=== PATIENT | female | born 1980 | race Caucasian/White ===

== ENCOUNTER 2021-05-17 13:05 | Observation (INO) | payer BC ==
[~2021-05-17] VITALS: Ht 167.6 cm; Wt 67.3 kg
[2021-05-17] MEDS ORDERED: IV NORMAL SALINE 1000ML BAG 1,000 ML IV ONE (14:00)
--- NOTE | 2021-05-17 14:07 | PHYS DOC ---
Past Medical History Additional Past Medical Histor: KIDNEY STONES Past Surgical History: Hysterectomy General Adult EDM: Chief Complaint: DIZZY/LIGHT HEADED HPI: HPI: Patient is a 40 year old female with no significant medical history presenting to the ED today to be evaluated for dizziness, hypotension, and bradycardia. Patient states symptoms have been going on intermittently since February this year. She states she saw a city planning teacher last week at [facility] and her blood pressure as well as heart rate were okay. She states they ordered her a Holter monitor but it has not arrived. She states today she had a dizzy spell, she could not hear from bilateral ears, her visual became tunneled she had chest tightness and shortness of breath. She states she did not pass out. She states that her took her vitals. Her blood pressure sitting was 104/56 with a heart rate of 49, blood pressure standing was 83/49 with a heart rate in the 60s. She states she called the city planning teacher and they requested her to come to the ED to be evaluated. Review of Systems: Review of Systems: Constitutional: Denies fever or chills. [] Eyes: Reports tunnel vision, denies change in visual acuity. [] HENT: Reports hearing loss, denies nasal congestion or sore throat. [] Respiratory: Reports shortness of breath. Denies cough Cardiovascular: Reports bradycardia, chest tightness, denies chest pain GI: Denies abdominal pain, nausea, vomiting, bloody stools or diarrhea. [] : Denies dysuria. [] Musculoskeletal: Denies back pain or joint pain. [] Integument: Denies rash. [] Neurologic: Reports dizziness. Denies headache, focal weakness or sensory changes. [] Psychiatric: Denies depression or anxiety. [] Heart Score: C/O Chest Pain: N/A Risk Factors: Risk Factors: DM, Current or recent (<one month) smoker, HTN, HLP, family history of CAD, obesity. Risk Scores: Score 0 - 3: 2.5% MACE over next 6 weeks - Discharge Home Score 4 - 6: 20.3% MACE over next 6 weeks - Admit for Clinical Observation Score 7 - 10: 72.7% MACE over next 6 weeks - Early Invasive Strategies Current Medications: Current Medications Medications (Trade) Dose Ordered Sig/Elle Start Time Stop Time Status Last Admin Dose Admin Sodium Chloride 1,000 ml @ 1,000 mls/hr 1X ONCE 05/17/21 14:00 05/17/21 14:59 Allergies: Allergies: Allergies Coded Allergies Type Severity Reaction Last Updated Verified No Known Drug Allergies 05/17/21 No Physical Exam: PE: Constitutional: Well developed, well nourished, no acute distress, non-toxic appearance. [] HENT: Normocephalic, atraumatic, bilateral external ears normal, oropharynx moist, no oral exudates, nose normal. [] Eyes: PERRLA, EOMI, conjunctiva normal, no discharge. [] Neck: Normal range of motion, no tenderness, supple, no stridor. [] Cardiovascular: Bradycardic heart rate in the 30s Lungs & Thorax: Bilateral breath sounds clear to auscultation [] Abdomen: Bowel sounds normal, soft, no tenderness, no masses, no pulsatile masses. [] Skin: Warm, dry, no erythema, no rash. [] Back: No tenderness, no CVA tenderness. [] Extremities: No tenderness, no cyanosis, no clubbing, ROM intact, no edema. [] Neurologic: Alert and oriented X 3, normal motor function, normal sensory function, no focal deficits noted. Cranial nerves II through XII intact Psychologic: Affect normal, judgement normal, mood normal. [] Current Patient Data: Vital Signs: Vital Signs Date Time Temp Pulse Resp B/P (MAP) Pulse Ox O2 Delivery O2 Flow Rate FiO2 05/17/21 13:40 97.4 37 18 111/56 (74) 99 Room Air 97.4 EKG: EK interpreted by Dr. Mahoney sinus bradycardia heart rate 39 no STEMI Radiology/Procedures: Radiology/Procedures: []PROCEDURE: PORTABLE CHEST 1V XR CHEST 1V History: Dizziness. Comparison: None. Technique: AP radiograph of the chest. Findings: The lungs are adequately and symmetrically inflated. No airspace consolidation, pleural effusion or pneumothorax. The cardiomediastinal silhouette and pulmonary vasculature are within normal limits. No acute osseous abnormality. Soft tissues are unremarkable. Impression: 1. No acute cardiopulmonary process. Electronically signed by: David Calderon MD (05/17/2021 2:34 PM) [id number] DICTATED and SIGNED BY: DAVID CALDERON MD DATE: 05/17/21 1434 Course & Med Decision Making: Course & Med Decision Making Pertinent Labs and Imaging studies reviewed. (See chart for details) This is a 40-year-old female patient presenting to the ED today with multiple complaints. Patient is complaining of bradycardia, hypotension, dizziness, symptoms have been going on intermittently since February but got worse today. Arrives in the ED with a blood pressure of 154/81, heart rate of 35, O2 sats 100% on room air. Dr. Mahoney was notified of patient's bradycardia and symptoms. He requested we do not start atropine for now. Cardiology was called. EKG shows sinus bradycardia heart rate in the 30s. Labs are negative for any acute findings Maday REEL BLADE BENDER FURNACE TENDER for cardiology came and saw the patient. She requested we admit patient under observation status but do not give any atropine Spoke with Dr. Perez who accepted patient for admission Dragon Disclaimer: Mohit Disclaimer: This electronic medical record was generated, in whole or in part, using a voice recognition dictation system. Departure Departure Impression: Primary Impression: Bradycardia Additional Impressions: Dizziness Shortness of breath Hypotension Qualified Codes: I95.9 - Hypotension, unspecified Disposition: 09 ADMITTED INPATIENT Condition: STABLE Referrals: NO PCP (PCP) DOROTHY CHEATHAM APRN May 17, 2021 14:07
[2021-05-17 14:14] LABS: BASO # 0.1 x10^3/uL (0.0-0.2); BASO % 1 % (0-3); EOS # 0.2 x10^3/uL (0.0-0.7); EOS % 2 % (0-3); HEMATOCRIT 35.7 % (36.0-47.0); HEMOGLOBIN 12.4 g/dL (12.0-15.5); LYMPH # 3.3 x10^3/uL (1.0-4.8); LYMPH % 39 % (24-48); MEAN CORPUSCULAR HEMOGLOBIN 31 pg (25-35); MEAN CORPUSCULAR HGB CONC 35 g/dL (31-37); MEAN CORPUSCULAR VOLUME 89 fL (79-100); MONO # 0.4 x10^3/uL (0.0-1.1); MONO % 5 % (0-9); NEUT # 4.4 x10^3/uL (1.8-7.7); NEUT % 53 % (31-73); PLATELET COUNT 319 x10^3/uL (140-400); RED BLOOD COUNT 4.01 x10^6/uL (3.50-5.40); RED CELL DISTRIBUTION WIDTH 13.5 % (11.5-14.5); WHITE BLOOD COUNT 8.4 x10^3/uL (4.0-11.0)
[2021-05-17 14:26] LABS: CALCIUM 9.5 mg/dL (8.5-10.1); CREATININE 0.7 mg/dL (0.6-1.0); GFR 92.2; POTASSIUM 3.7 mmol/L (3.5-5.1)
[2021-05-17 14:31] LABS: ALBUMIN 4.1 g/dL (3.4-5.0); ALBUMIN/GLOBULIN RATIO 1.4 (1.0-1.7); MAGNESIUM 2.3 mg/dL (1.8-2.4); TOTAL BILIRUBIN 0.7 mg/dL (0.2-1.0); TOTAL PROTEIN 7.1 g/dL (6.4-8.2)
--- NOTE | 2021-05-17 14:37 | RAD ---
XR CHEST 1V History: Dizziness. Comparison: None. Technique: AP radiograph of the chest. Findings: The lungs are adequately and symmetrically inflated. No airspace consolidation, pleural effusion or p neumothorax. The cardiomediastinal silhouette and pulmonary vasculature are within normal limits. No acute osseous abnormality. Soft tissues are unremarkable. Impression: 1. No acute cardiopulmonary process. Electronically signed by: David Goodman MD (05/17/2021 2:34 PM) [id number]
--- NOTE | 2021-05-17 15:26 | PDOC2 ---
RUPA ZAMORANO ADELSO 05/17/21 1526: CARDIAC CONSULT DATE OF CONSULT Date of Consult DATE: 05/17/21 TIME: 15:24 REASON FOR CONSULT Reason for Consult: bradycardia REFERRING PHYSICIAN Referring Physician: Tatum Herzog APRN SOURCE Source: Chart review, Patient HISTORY OF PRESENT ILLNESS HISTORY OF PRESENT ILLNESS This is a 40 yo female who presented secondary to dizziness, bradycardia, and hypotension. Patient reports intermittent dizziness upon standing since the end of February. Has became more frequent. Was referred to agent, Dr. Roach at [facility]. Was noted with bradycardia and heart monitor was arranged (patient has not yet received). This morning, had two episode of dizziness upon standing. Reports vision became black, felt slightly short of breath, and had loss of hearing briefly. was concerned so he called provider who recommend her to go to the ED for further evaluations and treatment. Noted with sinus bradycardia in ED. HR near 35-40 with lowest noted at 32. Blood pressure has remains adequate in ED. Denies dizziness presently. HR did increase to mid to upper 50's with activity. She denies any recent illness or fevers. No chest pain, diaphoresis, or nausea/vomiting. 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 PAST MEDICAL HISTORY Past Medical History HSV1, seasonal allergies Cardiovascular: No pertinent hx PAST SURGICAL HISTORY Past Surgical History: No pertinent history FAMILY HISTORY Family History: Other (noncontributory ) SOCIAL HISTORY Smoke: No ALCOHOL: occassional Drugs: None Lives: with Family CURRENT MEDICATIONS CURRENT MEDICATIONS Current Medications Medications (Trade) Dose Ordered Sig/Elle Route PRN Reason Start Time Stop Time Status Last Admin Dose Admin Sodium Chloride 1,000 ml @ 1,000 mls/hr 1X ONCE IV 05/17/21 14:00 05/17/21 14:59 DC 05/17/21 14:00 ALLERGIES ALLERGIES: Coded Allergies: No Known Drug Allergies (Unverified , 05/17/21) ROS Review of System 14 point ROS conducted with pertinent positives noted above in HPI PHYSICAL EXAM General: Alert, Oriented X3, Cooperative HEENT: Atraumatic Lungs: Clear to auscultation Heart: Other (SB- rate between 35-40) Abdomen: Soft, No tenderness Extremities: No edema, Normal pulses Skin: No significant lesion Neuro: Normal speech, Normal tone, Sensation intact Psych/Mental Status: Mental status NL, Mood NL MUSCULOSKELETAL: Osteoarthritic changes both hands VITALS/I&O VITALS/I&O: Vital Signs Date Time Temp Pulse Resp B/P (MAP) Pulse Ox O2 Delivery O2 Flow Rate FiO2 05/17/21 15:04 32 130/85 (100) 100 Nasal Cannula 2.0 05/17/21 13:40 97.4 18 97.4 LABS Lab: Laboratory Tests Test 05/17/21 13:37 White Blood Count 8.4 x10^3/uL (4.0-11.0) Red Blood Count 4.01 x10^6/uL (3.50-5.40) Hemoglobin 12.4 g/dL (12.0-15.5) Hematocrit 35.7 % (36.0-47.0) L Mean Corpuscular Volume 89 fL (79-100) Mean Corpuscular Hemoglobin 31 pg (25-35) Mean Corpuscular Hemoglobin Concent 35 g/dL (31-37) Red Cell Distribution Width 13.5 % (11.5-14.5) Platelet Count 319 x10^3/uL (140-400) Neutrophils (%) (Auto) 53 % (31-73) Lymphocytes (%) (Auto) 39 % (24-48) Monocytes (%) (Auto) 5 % (0-9) Eosinophils (%) (Auto) 2 % (0-3) Basophils (%) (Auto) 1 % (0-3) Neutrophils # (Auto) 4.4 x10^3/uL (1.8-7.7) Lymphocytes # (Auto) 3.3 x10^3/uL (1.0-4.8) Monocytes # (Auto) 0.4 x10^3/uL (0.0-1.1) Eosinophils # (Auto) 0.2 x10^3/uL (0.0-0.7) Basophils # (Auto) 0.1 x10^3/uL (0.0-0.2) Sodium Level 142 mmol/L (136-145) Potassium Level 3.7 mmol/L (3.5-5.1) Chloride Level 106 mmol/L (98-107) Carbon Dioxide Level 25 mmol/L (21-32) Anion Gap 11 (6-14) Blood Urea Nitrogen 9 mg/dL (7-20) Creatinine 0.7 mg/dL (0.6-1.0) Estimated GFR (Cockcroft-Gault) 92.2 BUN/Creatinine Ratio 13 (6-20) Glucose Level 114 mg/dL (70-99) H Calcium Level 9.5 mg/dL (8.5-10.1) Magnesium Level 2.3 mg/dL (1.8-2.4) Total Bilirubin 0.7 mg/dL (0.2-1.0) Aspartate Amino Transferase (AST) 10 U/L (15-37) L Alanine Aminotransferase (ALT) 17 U/L (14-59) Alkaline Phosphatase 42 U/L (46-116) L Troponin I High Sensitivity 5 ng/L (4-50) EA-Lil-M-Type Natriuretic Peptide 214 pg/mL (0-124) H Total Protein 7.1 g/dL (6.4-8.2) Albumin 4.1 g/dL (3.4-5.0) Albumin/Globulin Ratio 1.4 (1.0-1.7) Thyroid Stimulating Hormone (TSH) 1.885 uIU/mL (0.358-3.74) Laboratory Tests 05/17/21 13:37 Laboratory Tests 05/17/21 13:37 ASSESSMENT/PLAN ASSESSMENT/PLAN 1. Dizziness; generally occurs upon standing 2. Sinus bradycardia; HR presently 35-40. Lowest noted at 32 in ED. No pauses. Appropriate chronotropic response with activity. TSH WNL. IS physically active, but is not runner/athlete.Outpatient monitor has been arranged through [facility] agent, Dr. Roach (she has not received). 3. Hypotension; BP has remains stable in ED 4. Seasonal allergies Recommendations Admit to tele for rhythm monitoring overnight Orthostatic VS Avoid AV luis blocking agents Supportive care GIOVANA ROCKWELL MD 05/19/21 1750: CARDIAC CONSULT ASSESSMENT/PLAN ASSESSMENT/PLAN Late entry for 05/17/2021 Patient seen and examined. Agree with above nurse practitioner note. RUPA ZAMORANO APRN May 17, 2021 15:26 GIOVANA ROCKWELL MD May 19, 2021 17:50
--- NOTE | 2021-05-17 15:52 | EKG ---
[facility] [address] [place] [address] Test Date: 2021-05-17 Test Time: 13:25:29 Pat Name: DORIE MACKEY Department: Room: Gender: F Banking Paralegal: : 1980 Requested By: DOROTHY CHEATHAM Order Number: [id number] Reading MD: Ronak Raymundo Measurements Intervals [place] Rate: 39 P: 28 [place]: 128 QRS: 65 QRSD: 84 T: 54 QT: 498 QTc: 405 Interpretive Statements SINUS BRADYCARDIA ABNORMAL ECG RI6.02 No previous ECG available for comparison Electronically Signed On 05-21-2021 21:43:52 CDT by Ronak Raymundo
[2021-05-17 16:58] VITALS: BP 98/59
[2021-05-17] MEDS ORDERED: ATROPINE 0.5 MG/5 ML DISP.SYRINGE. IV PRN (17:30)
--- NOTE | 2021-05-17 17:37 | PDOC1 ---
History and Physical Date of Admission Date of Admission DATE: 05/17/21 TIME: 17:29 Identification/Chief Complaint Chief Complaint Weakness, bradycardia Source Source: Patient History of Present Illness History of Present Illness Patient is a 40-year-old female who presents to the ED with complaints of low blood pressure and symptomatic bradycardia. This is been a recurrent issue for her since February 2021. States she has been followed by pc maintenance technician at [facility] for this issue and scheduled for an outpatient Holter monitor, but she has only seen his pc maintenance technician once. Today she states she became dizzy while am bulating with some associated bilateral hearing loss, that she attributed to her seasonal allergies. When her became concerned about her vitals, he called her pc maintenance technician and her pc maintenance technician, he recommended coming to the ED for evaluation. Vitals: HR - 39, BP 98/59 Past Medical History Past Medical History Herpes, seasonal allergies Past Surgical History Past Surgical History Hysterectomy Family History Family History Colon cancer Social History Smoke: No ALCOHOL: social Drugs: None Current Problem List Problem List Problems Medical Problems: (1) Bradycardia Status: Acute Current Medications Current Medications Current Medications Sodium Chloride 1,000 ml @ 1,000 mls/hr 1X ONCE IV Last administered on 05/17/21at 14:00; Start 05/17/21 at 14:00; Stop 05/17/21 at 14:59; Status DC Allergies Allergies: Coded Allergies: No Known Drug Allergies (Unverified , 05/17/21) ROS Review of System GENERAL: Weakness. No history of weight change or fevers. SKIN: No bruising, hair changes or rashes. EYES: No blurred, double or loss of vision. NOSE AND THROAT: No history of nosebleeds, hoarseness or sore throat. HEART: Denies chest pain, denies palpitations. LUNGS: Denies cough, hemoptysis, wheezing or shortness of breath. GASTROINTESTINAL: Denies nausea, vomiting, abdominal pain. GENITOURINARY: Denies dysuria, frequency, urgency, hematuria. NEUROLOGIC: Denies history of numbness, tingling, tremor or weakness. PSYCHIATRIC: Denies anxiety, denies depression. ENDOCRINE: No history of heat or cold intolerance, polyuria or polydipsia. EXTREMITIES: Musculoskeletal weakness. Denies joint pain, pain on walking or s tiffness. Physical Exam Physical Exam General: Alert, Oriented X3, Cooperative, No acute distress. Frail-appearing. HEENT: PERRLA, EOMI Lungs: Clear to auscultation, Normal air movement Heart: Bradycardic. No murmurs Cardiovascular: S1, S2 Abdomen: Normal bowel sounds, Soft, No tenderness Extremities: No clubbing, No cyanosis Skin: No rashes, No significant lesion Neuro: Normal speech, Normal tone, Sensation intact Psych/Mental Status: Mental status NL, Mood NL Vitals Vitals Vital Signs Date Time Temp Pulse Resp B/P (MAP) Pulse Ox O2 Delivery O2 Flow Rate FiO2 05/17/21 16:58 97.4 47 19 98/59 (72) 100 Nasal Cannula 2.0 97.4 Labs Labs Laboratory Tests Test 05/17/21 13:37 White Blood Count 8.4 x10^3/uL (4.0-11.0) Red Blood Count 4.01 x10^6/uL (3.50-5.40) Hemoglobin 12.4 g/dL (12.0-15.5) Hematocrit 35.7 % (36.0-47.0) Mean Corpuscular Volume 89 fL (79-100) Mean Corpuscular Hemoglobin 31 pg (25-35) Mean Corpuscular Hemoglobin Concent 35 g/dL (31-37) Red Cell Distribution Width 13.5 % (11.5-14.5) Platelet Count 319 x10^3/uL (140-400) Neutrophils (%) (Auto) 53 % (31-73) Lymphocytes (%) (Auto) 39 % (24-48) Monocytes (%) (Auto) 5 % (0-9) Eosinophils (%) (Auto) 2 % (0-3) Basophils (%) (Auto) 1 % (0-3) Neutrophils # (Auto) 4.4 x10^3/uL (1.8-7.7) Lymphocytes # (Auto) 3.3 x10^3/uL (1.0-4.8) Monocytes # (Auto) 0.4 x10^3/uL (0.0-1.1) Eosinophils # (Auto) 0.2 x10^3/uL (0.0-0.7) Basophils # (Auto) 0.1 x10^3/uL (0.0-0.2) Sodium Level 142 mmol/L (136-145) Potassium Level 3.7 mmol/L (3.5-5.1) Chloride Level 106 mmol/L (98-107) Carbon Dioxide Level 25 mmol/L (21-32) Anion Gap 11 (6-14) Blood Urea Nitrogen 9 mg/dL (7-20) Creatinine 0.7 mg/dL (0.6-1.0) Estimated GFR (Cockcroft-Gault) 92.2 BUN/Creatinine Ratio 13 (6-20) Glucose Level 114 mg/dL (70-99) Calcium Level 9.5 mg/dL (8.5-10.1) Magnesium Level 2.3 mg/dL (1.8-2.4) Total Bilirubin 0.7 mg/dL (0.2-1.0) Aspartate Amino Transf (AST/SGOT) 10 U/L (15-37) Alanine Aminotransferase (ALT/SGPT) 17 U/L (14-59) Alkaline Phosphatase 42 U/L (46-116) Troponin I High Sensitivity 5 ng/L (4-50) ET-Jbe-Z-Type Natriuretic Peptide 214 pg/mL (0-124) Total Protein 7.1 g/dL (6.4-8.2) Albumin 4.1 g/dL (3.4-5.0) Albumin/Globulin Ratio 1.4 (1.0-1.7) Thyroid Stimulating Hormone (TSH) 1.885 uIU/mL (0.358-3.74) Laboratory Tests Test 05/17/21 13:37 White Blood Count 8.4 x10^3/uL (4.0-11.0) Red Blood Count 4.01 x10^6/uL (3.50-5.40) Hemoglobin 12.4 g/dL (12.0-15.5) Hematocrit 35.7 % (36.0-47.0) Mean Corpuscular Volume 89 fL (79-100) Mean Corpuscular Hemoglobin 31 pg (25-35) Mean Corpuscular Hemoglobin Concent 35 g/dL (31-37) Red Cell Distribution Width 13.5 % (11.5-14.5) Platelet Count 319 x10^3/uL (140-400) Neutrophils (%) (Auto) 53 % (31-73) Lymphocytes (%) (Auto) 39 % (24-48) Monocytes (%) (Auto) 5 % (0-9) Eosinophils (%) (Auto) 2 % (0-3) Basophils (%) (Auto) 1 % (0-3) Neutrophils # (Auto) 4.4 x10^3/uL (1.8-7.7) Lymphocytes # (Auto) 3.3 x10^3/uL (1.0-4.8) Monocytes # (Auto) 0.4 x10^3/uL (0.0-1.1) Eosinophils # (Auto) 0.2 x10^3/uL (0.0-0.7) Basophils # (Auto) 0.1 x10^3/uL (0.0-0.2) Sodium Level 142 mmol/L (136-145) Potassium Level 3.7 mmol/L (3.5-5.1) Chloride Level 106 mmol/L (98-107) Carbon Dioxide Level 25 mmol/L (21-32) Anion Gap 11 (6-14) Blood Urea Nitrogen 9 mg/dL (7-20) Creatinine 0.7 mg/dL (0.6-1.0) Estimated GFR (Cockcroft-Gault) 92.2 BUN/Creatinine Ratio 13 (6-20) Glucose Level 114 mg/dL (70-99) Calcium Level 9.5 mg/dL (8.5-10.1) Magnesium Level 2.3 mg/dL (1.8-2.4) Total Bilirubin 0.7 mg/dL (0.2-1.0) Aspartate Amino Transf (AST/SGOT) 10 U/L (15-37) Alanine Aminotransferase (ALT/SGPT) 17 U/L (14-59) Alkaline Phosphatase 42 U/L (46-116) Troponin I High Sensitivity 5 ng/L (4-50) UB-Gge-D-Type Natriuretic Peptide 214 pg/mL (0-124) Total Protein 7.1 g/dL (6.4-8.2) Albumin 4.1 g/dL (3.4-5.0) Albumin/Globulin Ratio 1.4 (1.0-1.7) Thyroid Stimulating Hormone (TSH) 1.885 uIU/mL (0.358-3.74) Images Images PATIENT: KEY,DORIEKAY POOLCOUNT: [id number] : 1980 LOCATION: ER AGE: 40 SEX: F EXAM STATUS: REG ER ORD. PHYSICIAN: DOROTHY CHEATHAM APRN REASON: dizziness PROCEDURE: PORTABLE CHEST 1V XR CHEST 1V History: Dizziness. Comparison: None. Technique: AP radiograph of the chest. Findings: The lungs are adequately and symmetrically inflated. No airspace consolidation, pleural effusion or pneumothorax. The cardiomediastinal silhouette and pulmonary vasculature are within normal limits. No acute osseous abnormality. Soft tissues are unremarkable. Impression: 1. No acute cardiopulmonary process. VTE Prophylaxis Ordered VTE Prophylaxis Devices: Yes VTE Pharmacological Prophylaxi: No Assessment/Plan Assessment/Plan Symptomatic bradycardia Hypotension Plan: Patient admitted to hospital for observation. We will consult cardiology and monitor her vitals likely overnight. Atropine as needed for symptomatic bradycardia. She did receive 1 L of IV fluids in the ED. PT/OT Resume home medications FEN - Cardiac diet PPX - SCDs FULL CODE Dispo - inpatient for above Justifications for Admission Other Justification LEE SHEEHAN MD May 17, 2021 17:36
[2021-05-17] MEDS ORDERED: ONDANSETRON PF 4 MG/2 ML VIAL. IVP PRN ×2 (17:45→18:00)
[2021-05-17] MEDS ORDERED: MORPHINE SULFATE 2 MG/ML INJ. IVP PRN (17:45)
[2021-05-17] MEDS ORDERED: ACETAMINOPHEN 325 MG TABLET. PO PRN ×2 (17:45→18:00)
[2021-05-17] MEDS ORDERED: MAGNESIUM HYDROXIDE 2,400 MG/30 ML ORAL.SUSP. PO PRN (18:00)
[2021-05-17] MEDS ORDERED: ZOLPIDEM 5 MG TABLET. PO PRN (18:00)
[2021-05-17 19:29] VITALS: BP 94/60
[2021-05-17 22:49] VITALS: BP 84/47
[2021-05-18] VITALS (7 sets, daily range): BP systolic 78–97; BP diastolic 40–54
[2021-05-18 02:30] LABS: BARBITURATES NEG (NEG); BENZODIAZEPINES NEG (NEG); CANNABINOIDS NEG (NEG); COCAINE NEG (NEG); METHADONE NEG (NEG); OPIATES NEG (NEG); PHENCYCLIDINE NEG (NEG)
[2021-05-18 02:40] LABS: BACTERIA,URINE 0 /HPF (0-FEW); RBC,URINE 0 /HPF (0-2); WBC,URINE 0 /HPF (0-4)
[2021-05-18 02:41] LABS: AMPHETAMINE/METHAMPHETAMINE NEG (NEG)
[2021-05-18 05:01] LABS: BASO % 1 % (0-3); EOS # 0.1 x10^3/uL (0.0-0.7); EOS % 3 % (0-3); HEMATOCRIT 34.6 % (36.0-47.0); HEMOGLOBIN 11.8 g/dL (12.0-15.5); LYMPH # 2.3 x10^3/uL (1.0-4.8); LYMPH % 44 % (24-48); MEAN CORPUSCULAR HEMOGLOBIN 31 pg (25-35); MEAN CORPUSCULAR HGB CONC 34 g/dL (31-37); MEAN CORPUSCULAR VOLUME 90 fL (79-100); MONO # 0.3 x10^3/uL (0.0-1.1); MONO % 6 % (0-9); NEUT # 2.4 x10^3/uL (1.8-7.7); NEUT % 47 % (31-73); PLATELET COUNT 230 x10^3/uL (140-400); RED BLOOD COUNT 3.83 x10^6/uL (3.50-5.40); RED CELL DISTRIBUTION WIDTH 13.5 % (11.5-14.5); WHITE BLOOD COUNT 5.2 x10^3/uL (4.0-11.0)
[2021-05-18 05:28] LABS: ALBUMIN 3.5 g/dL (3.4-5.0); ALBUMIN/GLOBULIN RATIO 1.3 (1.0-1.7); CALCIUM 8.4 mg/dL (8.5-10.1); CREATININE 0.8 mg/dL (0.6-1.0); POTASSIUM 3.7 mmol/L (3.5-5.1); TOTAL BILIRUBIN 0.3 mg/dL (0.2-1.0); TOTAL PROTEIN 6.1 g/dL (6.4-8.2)
[2021-05-18] MEDS: IBUPROFEN 400 MG TABLET. PO PRN ×2 (08:43→15:11)
--- NOTE | 2021-05-18 09:31 | PDOC ---
RUPA ZAMORANO [employer]S AND [employer]S ATTENDANT 05/18/21 0931: CARDIO Progress Notes Date and Time Date of Service 05/18/21 Time of Evaluation 1150 Subjective Subjective: No Chest Pain, No shortness of breath, No Palpitations, No Dizziness, Other (c/o TENORIO) Vitals Vitals Vital Signs Date Time Temp Pulse Resp B/P (MAP) Pulse Ox O2 Delivery O2 Flow Rate FiO2 05/18/21 07:06 76 78/53 (61) 05/18/21 07:00 97.9 16 100 Room Air 97.9 05/17/21 22:49 2.0 Weight Weight [ ] Input and Output Intake and Output Intake and Output 05/18/21 07:00 Intake Total 640 ml Output Total 1000 ml Balance -360 ml Intake Oral 640 ml Output Urine Total 1000 ml # Voids 1 Laboratory Labs Laboratory Tests Test 05/17/21 13:37 05/17/21 17:40 05/17/21 19:45 05/18/21 02:14 White Blood Count 8.4 x10^3/uL (4.0-11.0) Red Blood Count 4.01 x10^6/uL (3.50-5.40) Hemoglobin 12.4 g/dL (12.0-15.5) Hematocrit 35.7 % (36.0-47.0) Mean Corpuscular Volume 89 fL (79-100) Mean Corpuscular Hemoglobin 31 pg (25-35) Mean Corpuscular Hemoglobin Concent 35 g/dL (31-37) Red Cell Distribution Width 13.5 % (11.5-14.5) Platelet Count 319 x10^3/uL (140-400) Neutrophils (%) (Auto) 53 % (31-73) Lymphocytes (%) (Auto) 39 % (24-48) Monocytes (%) (Auto) 5 % (0-9) Eosinophils (%) (Auto) 2 % (0-3) Basophils (%) (Auto) 1 % (0-3) Neutrophils # (Auto) 4.4 x10^3/uL (1.8-7.7) Lymphocytes # (Auto) 3.3 x10^3/uL (1.0-4.8) Monocytes # (Auto) 0.4 x10^3/uL (0.0-1.1) Eosinophils # (Auto) 0.2 x10^3/uL (0.0-0.7) Basophils # (Auto) 0.1 x10^3/uL (0.0-0.2) Sodium Level 142 mmol/L (136-145) Potassium Level 3.7 mmol/L (3.5-5.1) Chloride Level 106 mmol/L (98-107) Carbon Dioxide Level 25 mmol/L (21-32) Anion Gap 11 (6-14) Blood Urea Nitrogen 9 mg/dL (7-20) Creatinine 0.7 mg/dL (0.6-1.0) Estimated GFR (Cockcroft-Gault) 92.2 BUN/Creatinine Ratio 13 (6-20) Glucose Level 114 mg/dL (70-99) Calcium Level 9.5 mg/dL (8.5-10.1) Magnesium Level 2.3 mg/dL (1.8-2.4) Total Bilirubin 0.7 mg/dL (0.2-1.0) Aspartate Amino Transf (AST/SGOT) 10 U/L (15-37) Alanine Aminotransferase (ALT/SGPT) 17 U/L (14-59) Alkaline Phosphatase 42 U/L (46-116) Troponin I High Sensitivity 5 ng/L (4-50) 6 ng/L (4-50) 7 ng/L (4-50) ZA-Eye-A-Type Natriuretic Peptide 214 pg/mL (0-124) Total Protein 7.1 g/dL (6.4-8.2) Albumin 4.1 g/dL (3.4-5.0) Albumin/Globulin Ratio 1.4 (1.0-1.7) Thyroid Stimulating Hormone (TSH) 1.885 uIU/mL (0.358-3.74) Urine Collection Type Unknown Urine Color (Auto) Colorless Urine Turbidity Clear Urine pH (Auto) 7.0 (<5.0-8.0) Urine Specific [place] 1.006 (1.000-1.030) Urine Protein (Auto) Negative mg/dL (Negative) Urine Glucose (Auto)(UA) Negative mg/dL (Negative) Urine Ketones (Auto) Negative mg/dL (Negative) Urine Blood (Auto) Negative (Negative) Urine Nitrite Negative (Negative) Urine Bilirubin (Auto) Negative (Negative) Urine Urobilinogen (Auto) Normal mg/dL (Normal) Urine Leukocyte Esterase (Auto) Negative (Negative) Urine RBC 0 /HPF (0-2) Urine WBC 0 /HPF (0-4) Urine Squamous Epithelial Cells Few /LPF Urine Bacteria 0 /HPF (0-FEW) Urine Opiates Screen Neg (NEG) Urine Methadone Screen Neg (NEG) Urine Barbiturates Neg (NEG) Urine Phencyclidine Screen Neg (NEG) Urine Amphetamine/Methamphetamine Neg (NEG) Urine Benzodiazepines Screen Neg (NEG) Urine Cocaine Screen Neg (NEG) Urine Cannabinoids Screen Neg (NEG) Urine Ethyl Alcohol Neg (NEG) Test 05/18/21 03:45 White Blood Count 5.2 x10^3/uL (4.0-11.0) Red Blood Count 3.83 x10^6/uL (3.50-5.40) Hemoglobin 11.8 g/dL (12.0-15.5) Hematocrit 34.6 % (36.0-47.0) Mean Corpuscular Volume 90 fL (79-100) Mean Corpuscular Hemoglobin 31 pg (25-35) Mean Corpuscular Hemoglobin Concent 34 g/dL (31-37) Red Cell Distribution Width 13.5 % (11.5-14.5) Platelet Count 230 x10^3/uL (140-400) Neutrophils (%) (Auto) 47 % (31-73) Lymphocytes (%) (Auto) 44 % (24-48) Monocytes (%) (Auto) 6 % (0-9) Eosinophils (%) (Auto) 3 % (0-3) Basophils (%) (Auto) 1 % (0-3) Neutrophils # (Auto) 2.4 x10^3/uL (1.8-7.7) Lymphocytes # (Auto) 2.3 x10^3/uL (1.0-4.8) Monocytes # (Auto) 0.3 x10^3/uL (0.0-1.1) Eosinophils # (Auto) 0.1 x10^3/uL (0.0-0.7) Basophils # (Auto) 0.0 x10^3/uL (0.0-0.2) Sodium Level 141 mmol/L (136-145) Potassium Level 3.7 mmol/L (3.5-5.1) Chloride Level 107 mmol/L (98-107) Carbon Dioxide Level 26 mmol/L (21-32) Anion Gap 8 (6-14) Blood Urea Nitrogen 10 mg/dL (7-20) Creatinine 0.8 mg/dL (0.6-1.0) Estimated GFR (Cockcroft-Gault) 79.0 BUN/Creatinine Ratio 13 (6-20) Glucose Level 99 mg/dL (70-99) Calcium Level 8.4 mg/dL (8.5-10.1) Total Bilirubin 0.3 mg/dL (0.2-1.0) Aspartate Amino Transf (AST/SGOT) 10 U/L (15-37) Alanine Aminotransferase (ALT/SGPT) 11 U/L (14-59) Alkaline Phosphatase 37 U/L (46-116) Total Protein 6.1 g/dL (6.4-8.2) Albumin 3.5 g/dL (3.4-5.0) Albumin/Globulin Ratio 1.3 (1.0-1.7) Physical Exam HEENT: Neck Supple W Full Motion Chest: Symmetric LUNGS: Clear to Auscultation Heart: other (sinus bradycardia- rate near 55) Abdomen: Soft N/T Extremities: No Edema Neurology: alert, oriented, follow commands Assessment Assessment 1. Dizziness; generally occurs upon standing. suspect this is due to hypotension 2. Sinus bradycardia; HR presently 35-40. Lowest noted at 32 in ED. No pauses. Appropriate chronotropic response with activity. TSH WNL. 3. Hypotension; remains hypotensive overnight, but not orthostatic. Recommendations Doubt cardiac etiology ? adrenal insufficiency. Will check cortisol level Add midodrine Supportive care Justicifation of Admission Dx: Justifications for Admission: Justification of Admission Dx: Yes Comments: Dizziness Hypotension GIOVANA ROCKWELL MD 05/19/21 1755: CARDIO Progress Notes Plan Plan Late entry for 05/18/2021 Patient seen and examined. Agree with above nurse practitioner note RUPA ZAMORANO APRN May 18, 2021 09:31 GIOVANA ROCKWELL MD May 19, 2021 17:55
[2021-05-18] MEDS: MIDODRINE 2.5 MG TABLET PO SCH ×2 (11:16→17:12)
--- NOTE | 2021-05-18 11:24 | NUR ---
SS following for discharge planning. SS reviewed pt chart and discussed with pt RN. Pt is from home with spouse and is currently on room air. Cardiology consulted. PT ordered. SS will continue to follow for discharge planning.
[2021-05-18] MEDS ORDERED: ASPIRIN CHEWABLE 81 MG TABLET. PO ONE (12:00)
--- NOTE | 2021-05-18 13:28 | PDOC ---
[employer] PROGRESS NOTE Date of Service DOS: DATE: 05/18/21 TIME: 13:21 Chief Complaint Chief Complaint Symptomatic bradycardia - telemetry reviewed, sinus scooter. TSH and Outpatient monitor has been arranged through [facility] performance improvement analyst, Dr. Roach (she has not received). Hypotension Dizziness - upon awakening and standing Seasonal allergies Posterior headache Plan: Patient admitted to hospital for observation. PT Resume home medications FEN - Cardiac diet PPX - SCDs FULL CODE Dispo - observation for above History of Present Illness History of Present Illness Ms Dickinson is a 40-year-old female who presents to the ED with complaints of low blood pressure and symptomatic bradycardia. This is been a recurrent issue for her since February 2021. States she has been followed by performance improvement analyst at [facility] for this issue and scheduled for an outpatient Holter monitor, but she has only seen his performance improvement analyst once. Today she states she became dizzy while ambulating with some associated bilateral hearing loss, that she attributed to her seasonal allergies. When her became concerned about her vitals, he called her performance improvement analyst and her performance improvement analyst, he recommended coming to the ED for evaluation. Vitals: HR - 39, BP 98/59 05/18: When awake heart rate responds well to the 70s. Blood pressure is low but it is 98/77 currently. She has mildly positive orthostatic vital signs. 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 Symptoms are worse in the morning. A.m. cortisol was 4.5 TSH within normal limits. She did not initially disclose that back in February she had severe posterior headache and neck fullness and stiffness which has persisted and continues to have a posterior headache which is not similar to her normal tension headaches which are frontal. I have advised carotid and vertebral Dopplers and a noncontrast CT head and neck given the symptoms that were not initially disclosed because the patient and forgot about them. They do persist. His CT head neck and carotid Dopplers are negative likely this is vasovagal syncope advised to continue hydration eating frequent small meals including snacks and empty her bladder frequently. She does note that previously she is had measured urine output with a urologist that was over 2 L. Vitals/I&O Vitals/I&O: Vital Signs Date Time Temp Pulse Resp B/P (MAP) Pulse Ox O2 Delivery O2 Flow Rate FiO2 3/30/22 11:16 54 97/54 05/18/21 11:00 97.9 16 100 Room Air 97.9 05/17/21 22:49 2.0 I & O 05/17/21 05/17/21 05/18/21 15:00 23:00 07:00 Intake Total 240 ml 400 ml Output Total 1000 ml Balance 240 ml -600 ml Physical Exam General: Alert, Oriented X3, Cooperative Heart: Other (SB- rate between 35-40) Abdomen: Soft, No tenderness Extremities: No edema, Normal pulses Skin: No significant lesion Labs Labs: Laboratory Tests Test 05/17/21 13:37 05/17/21 17:40 05/17/21 19:45 05/18/21 02:14 White Blood Count 8.4 x10^3/uL (4.0-11.0) Red Blood Count 4.01 x10^6/uL (3.50-5.40) Hemoglobin 12.4 g/dL (12.0-15.5) Hematocrit 35.7 % (36.0-47.0) Mean Corpuscular Volume 89 fL (79-100) Mean Corpuscular Hemoglobin 31 pg (25-35) Mean Corpuscular Hemoglobin Concent 35 g/dL (31-37) Red Cell Distribution Width 13.5 % (11.5-14.5) Platelet Count 319 x10^3/uL (140-400) Neutrophils (%) (Auto) 53 % (31-73) Lymphocytes (%) (Auto) 39 % (24-48) Monocytes (%) (Auto) 5 % (0-9) Eosinophils (%) (Auto) 2 % (0-3) Basophils (%) (Auto) 1 % (0-3) Neutrophils # (Auto) 4.4 x10^3/uL (1.8-7.7) Lymphocytes # (Auto) 3.3 x10^3/uL (1.0-4.8) Monocytes # (Auto) 0.4 x10^3/uL (0.0-1.1) Eosinophils # (Auto) 0.2 x10^3/uL (0.0-0.7) Basophils # (Auto) 0.1 x10^3/uL (0.0-0.2) Sodium Level 142 mmol/L (136-145) Potassium Level 3.7 mmol/L (3.5-5.1) Chloride Level 106 mmol/L (98-107) Carbon Dioxide Level 25 mmol/L (21-32) Anion Gap 11 (6-14) Blood Urea Nitrogen 9 mg/dL (7-20) Creatinine 0.7 mg/dL (0.6-1.0) Estimated GFR (Cockcroft-Gault) 92.2 BUN/Creatinine Ratio 13 (6-20) Glucose Level 114 mg/dL (70-99) Calcium Level 9.5 mg/dL (8.5-10.1) Magnesium Level 2.3 mg/dL (1.8-2.4) Total Bilirubin 0.7 mg/dL (0.2-1.0) Aspartate Amino Transf (AST/SGOT) 10 U/L (15-37) Alanine Aminotransferase (ALT/SGPT) 17 U/L (14-59) Alkaline Phosphatase 42 U/L (46-116) Troponin I High Sensitivity 5 ng/L (4-50) 6 ng/L (4-50) 7 ng/L (4-50) QX-Dmp-L-Type Natriuretic Peptide 214 pg/mL (0-124) Total Protein 7.1 g/dL (6.4-8.2) Albumin 4.1 g/dL (3.4-5.0) Albumin/Globulin Ratio 1.4 (1.0-1.7) Thyroid Stimulating Hormone (TSH) 1.885 uIU/mL (0.358-3.74) Urine Collection Type Unknown Urine Color (Auto) Colorless Urine Turbidity Clear Urine pH (Auto) 7.0 (<5.0-8.0) Urine Specific [place] 1.006 (1.000-1.030) Urine Protein (Auto) Negative mg/dL (Negative) Urine Glucose (Auto)(UA) Negative mg/dL (Negative) Urine Ketones (Auto) Negative mg/dL (Negative) Urine Blood (Auto) Negative (Negative) Urine Nitrite Negative (Negative) Urine Bilirubin (Auto) Negative (Negative) Urine Urobilinogen (Auto) Normal mg/dL (Normal) Urine Leukocyte Esterase (Auto) Negative (Negative) Urine RBC 0 /HPF (0-2) Urine WBC 0 /HPF (0-4) Urine Squamous Epithelial Cells Few /LPF Urine Bacteria 0 /HPF (0-FEW) Urine Opiates Screen Neg (NEG) Urine Methadone Screen Neg (NEG) Urine Barbiturates Neg (NEG) Urine Phencyclidine Screen Neg (NEG) Urine Amphetamine/Methamphetamine Neg (NEG) Urine Benzodiazepines Screen Neg (NEG) Urine Cocaine Screen Neg (NEG) Urine Cannabinoids Screen Neg (NEG) Urine Ethyl Alcohol Neg (NEG) Test 05/18/21 03:45 White Blood Count 5.2 x10^3/uL (4.0-11.0) Red Blood Count 3.83 x10^6/uL (3.50-5.40) Hemoglobin 11.8 g/dL (12.0-15.5) Hematocrit 34.6 % (36.0-47.0) Mean Corpuscular Volume 90 fL (79-100) Mean Corpuscular Hemoglobin 31 pg (25-35) Mean Corpuscular Hemoglobin Concent 34 g/dL (31-37) Red Cell Distribution Width 13.5 % (11.5-14.5) Platelet Count 230 x10^3/uL (140-400) Neutrophils (%) (Auto) 47 % (31-73) Lymphocytes (%) (Auto) 44 % (24-48) Monocytes (%) (Auto) 6 % (0-9) Eosinophils (%) (Auto) 3 % (0-3) Basophils (%) (Auto) 1 % (0-3) Neutrophils # (Auto) 2.4 x10^3/uL (1.8-7.7) Lymphocytes # (Auto) 2.3 x10^3/uL (1.0-4.8) Monocytes # (Auto) 0.3 x10^3/uL (0.0-1.1) Eosinophils # (Auto) 0.1 x10^3/uL (0.0-0.7) Basophils # (Auto) 0.0 x10^3/uL (0.0-0.2) Sodium Level 141 mmol/L (136-145) Potassium Level 3.7 mmol/L (3.5-5.1) Chloride Level 107 mmol/L (98-107) Carbon Dioxide Level 26 mmol/L (21-32) Anion Gap 8 (6-14) Blood Urea Nitrogen 10 mg/dL (7-20) Creatinine 0.8 mg/dL (0.6-1.0) Estimated GFR (Cockcroft-Gault) 79.0 BUN/Creatinine Ratio 13 (6-20) Glucose Level 99 mg/dL (70-99) Calcium Level 8.4 mg/dL (8.5-10.1) Total Bilirubin 0.3 mg/dL (0.2-1.0) Aspartate Amino Transf (AST/SGOT) 10 U/L (15-37) Alanine Aminotransferase (ALT/SGPT) 11 U/L (14-59) Alkaline Phosphatase 37 U/L (46-116) Total Protein 6.1 g/dL (6.4-8.2) Albumin 3.5 g/dL (3.4-5.0) Albumin/Globulin Ratio 1.3 (1.0-1.7) Cortisol AM Sample 4.9 ug/dL (4.3-22.4) Assessment and Plan Assessmemt and Plan Problems Medical Problems: (1) Bradycardia Status: Acute (2) Dizziness Status: Acute (3) Hypotension Status: Acute (4) Shortness of breath Status: Acute Comment Review of Relevant I have reviewed the following items jacquelyn (where applicable) has been applied. Medications: Current Medications Medications (Trade) Dose Ordered Sig/Elle Route PRN Reason Start Time Stop Time Status Last Admin Dose Admin Sodium Chloride 1,000 ml @ 1,000 mls/hr 1X ONCE IV 05/17/21 14:00 05/17/21 14:59 DC 05/17/21 14:00 Acetaminophen (Tylenol) 650 mg PRN Q4HRS PRN PO FEVER > 100.3'F 05/17/21 17:45 05/18/21 10:31 DC 05/18/21 04:59 Acetaminophen (Tylenol) 650 mg PRN Q6HRS PRN PO Headaches, Temp > 101.5F 05/17/21 18:00 05/18/21 11:15 Ibuprofen (Motrin) 400 mg PRN Q6HRS PRN PO MILD PAIN 1-3 05/17/21 18:00 05/18/21 08:43 Midodrine (Proamatine) 2.5 mg [id number] PO 05/18/21 13:00 05/18/21 11:16 Aspirin (Aspirin Chewable) 81 mg 1X ONCE PO 05/18/21 12:00 05/18/21 12:01 DC 05/18/21 12:13 Justifications for Admission Other Justification CEDRIC PETTY MD May 18, 2021 13:28
--- NOTE | 2021-05-18 16:11 | RAD ---
EXAM: Carotid Doppler sonogram. HISTORY: Vertebrobasilar disease. Syncope. Atherosclerosis. TECHNIQUE: Marion scale and color Doppler sonographic evaluation of the neck with spectral waveform rufina lysis was performed and static images are submitted for review. FINDINGS: The peak systolic velocity within the right common carotid artery is 111 cm/sec. The peak s ystolic velocity within the right internal carotid artery is 117 cm/sec and the end diastolic velocit y within the right internal carotid artery is 33 cm/sec. The right ICA/CCA ratio is 1.21. The peak systolic velocity within the left common carotid artery is 111 cm/sec. The peak systolic zoe ocity within the left internal carotid artery is 111 cm/sec and the end diastolic velocity within the left internal carotid artery is 48 cm/sec. The left ICA/CCA ratio is 1.52. There is normal antegrade flow within both vertebral arteries. IMPRESSION: Doppler findings consistent with less than 50 percent stenosis involving the internal car otid arteries. PQRS Compliance Statement - Stenosis calculations for CT, MR and conventional angiography are based u christiano measurement of the distal ICA diameter in accordance with the NASCET methodology. Stenosis calcu lations for carotid ultrasound studies are derived from validated velocity criteria which are known t o correlate with the NASCET methodology. Electronically signed by: Ashia Calloway MD (05/18/2021 4:09 PM) [facility]
--- NOTE | 2021-05-18 16:20 | RAD ---
EXAMINATION: CT head and cervical spine without IV contrast. INDICATION:40 years, Female, posterior headache, concern for subdural hemorrhage. COMPARISON: None TECHNIQUE: Spiral acquisition of contiguous images from the skull base to the vertex were obtained. C T of the cervical spine was obtained using contiguous spiral imaging from the skull base to the upper thoracic level. Sagittal and coronal 2D reformatted series were provided by the technologist. Soft t issue and bone window algorithms were reviewed. Exposure: One or more of the following individualized dose reduction techniques were utilized for thi s examination: 1. Automated exposure control 2. Adjustment of the mA and/or kV according to patient size 3. Use of iterative reconstruction technique. FINDINGS: CT HEAD: Neither mass, midline shift, intracranial hemorrhage, acute/subacute ischemic changes, nor extraaxial fluid collections are seen. The paranasal sinuses, mastoid air cells, and middle ears are clear. Th e orbital contents appear within normal limits. CT CERVICAL SPINE: Anatomic alignment of the cervical spine is maintained. Neither fracture, subluxation, nor traumatic spondylolisthesis is seen. The vertebral body heights and intervertebral disk spaces are preserved. T here is no evidence of a large intraspinal hematoma. The prevertebral and paravertebral soft tissues are within normal limits. IMPRESSION: 1. No evidence of acute intracranial process. 2. No acute osseous process in the cervical spine. Electronically signed by: Cholo Zayas MD (05/18/2021 4:17 PM) [id number]
[2021-05-18] MEDS ORDERED: MIDO2.5T PO (17:52)
--- NOTE | 2021-05-18 17:55 | PDOC3 ---
Discharge Summary Visit Information Date of Admission: May 17, 2021 Date of Discharge: May 18, 2021 Admitting Diagnosis: Symptomatic bradycardia Final Diagnosis Problems Medical Problems: (1) Bradycardia Status: Acute (2) Dizziness Status: Acute (3) Hypotension Status: Acute (4) Shortness of breath Status: Acute Brief Hospital Course Allergies Allergies Coded Allergies Type Severity Reaction Last Updated Verified No Known Drug Allergies 05/17/21 No Vital Signs Vital Signs Date Time Temp Pulse Resp B/P (MAP) Pulse Ox O2 Delivery O2 Flow Rate FiO2 05/18/21 17:12 59 94/54 05/18/21 15:00 98.4 16 100 Room Air 98.4 05/17/21 22:49 2.0 Lab Results Laboratory Tests Test 05/17/21 13:37 05/17/21 17:40 05/17/21 19:45 05/18/21 02:14 White Blood Count 8.4 x10^3/uL (4.0-11.0) Red Blood Count 4.01 x10^6/uL (3.50-5.40) Hemoglobin 12.4 g/dL (12.0-15.5) Hematocrit 35.7 % (36.0-47.0) Mean Corpuscular Volume 89 fL (79-100) Mean Corpuscular Hemoglobin 31 pg (25-35) Mean Corpuscular Hemoglobin Concent 35 g/dL (31-37) Red Cell Distribution Width 13.5 % (11.5-14.5) Platelet Count 319 x10^3/uL (140-400) Neutrophils (%) (Auto) 53 % (31-73) Lymphocytes (%) (Auto) 39 % (24-48) Monocytes (%) (Auto) 5 % (0-9) Eosinophils (%) (Auto) 2 % (0-3) Basophils (%) (Auto) 1 % (0-3) Neutrophils # (Auto) 4.4 x10^3/uL (1.8-7.7) Lymphocytes # (Auto) 3.3 x10^3/uL (1.0-4.8) Monocytes # (Auto) 0.4 x10^3/uL (0.0-1.1) Eosinophils # (Auto) 0.2 x10^3/uL (0.0-0.7) Basophils # (Auto) 0.1 x10^3/uL (0.0-0.2) Sodium Level 142 mmol/L (136-145) Potassium Level 3.7 mmol/L (3.5-5.1) Chloride Level 106 mmol/L (98-107) Carbon Dioxide Level 25 mmol/L (21-32) Anion Gap 11 (6-14) Blood Urea Nitrogen 9 mg/dL (7-20) Creatinine 0.7 mg/dL (0.6-1.0) Estimated GFR (Cockcroft-Gault) 92.2 BUN/Creatinine Ratio 13 (6-20) Glucose Level 114 mg/dL (70-99) Calcium Level 9.5 mg/dL (8.5-10.1) Magnesium Level 2.3 mg/dL (1.8-2.4) Total Bilirubin 0.7 mg/dL (0.2-1.0) Aspartate Amino Transf (AST/SGOT) 10 U/L (15-37) Alanine Aminotransferase (ALT/SGPT) 17 U/L (14-59) Alkaline Phosphatase 42 U/L (46-116) Troponin I High Sensitivity 5 ng/L (4-50) 6 ng/L (4-50) 7 ng/L (4-50) WO-Vhn-I-Type Natriuretic Peptide 214 pg/mL (0-124) Total Protein 7.1 g/dL (6.4-8.2) Albumin 4.1 g/dL (3.4-5.0) Albumin/Globulin Ratio 1.4 (1.0-1.7) Thyroid Stimulating Hormone (TSH) 1.885 uIU/mL (0.358-3.74) Urine Collection Type Unknown Urine Color (Auto) Colorless Urine Turbidity Clear Urine pH (Auto) 7.0 (<5.0-8.0) Urine Specific [place] 1.006 (1.000-1.030) Urine Protein (Auto) Negative mg/dL (Negative) Urine Glucose (Auto)(UA) Negative mg/dL (Negative) Urine Ketones (Auto) Negative mg/dL (Negative) Urine Blood (Auto) Negative (Negative) Urine Nitrite Negative (Negative) Urine Bilirubin (Auto) Negative (Negative) Urine Urobilinogen (Auto) Normal mg/dL (Normal) Urine Leukocyte Esterase (Auto) Negative (Negative) Urine RBC 0 /HPF (0-2) Urine WBC 0 /HPF (0-4) Urine Squamous Epithelial Cells Few /LPF Urine Bacteria 0 /HPF (0-FEW) Urine Opiates Screen Neg (NEG) Urine Methadone Screen Neg (NEG) Urine Barbiturates Neg (NEG) Urine Phencyclidine Screen Neg (NEG) Urine Amphetamine/Methamphetamine Neg (NEG) Urine Benzodiazepines Screen Neg (NEG) Urine Cocaine Screen Neg (NEG) Urine Cannabinoids Screen Neg (NEG) Urine Ethyl Alcohol Neg (NEG) Test 05/18/21 03:45 05/18/21 14:00 White Blood Count 5.2 x10^3/uL (4.0-11.0) Red Blood Count 3.83 x10^6/uL (3.50-5.40) Hemoglobin 11.8 g/dL (12.0-15.5) Hematocrit 34.6 % (36.0-47.0) Mean Corpuscular Volume 90 fL (79-100) Mean Corpuscular Hemoglobin 31 pg (25-35) Mean Corpuscular Hemoglobin Concent 34 g/dL (31-37) Red Cell Distribution Width 13.5 % (11.5-14.5) Platelet Count 230 x10^3/uL (140-400) Neutrophils (%) (Auto) 47 % (31-73) Lymphocytes (%) (Auto) 44 % (24-48) Monocytes (%) (Auto) 6 % (0-9) Eosinophils (%) (Auto) 3 % (0-3) Basophils (%) (Auto) 1 % (0-3) Neutrophils # (Auto) 2.4 x10^3/uL (1.8-7.7) Lymphocytes # (Auto) 2.3 x10^3/uL (1.0-4.8) Monocytes # (Auto) 0.3 x10^3/uL (0.0-1.1) Eosinophils # (Auto) 0.1 x10^3/uL (0.0-0.7) Basophils # (Auto) 0.0 x10^3/uL (0.0-0.2) Sodium Level 141 mmol/L (136-145) Potassium Level 3.7 mmol/L (3.5-5.1) Chloride Level 107 mmol/L (98-107) Carbon Dioxide Level 26 mmol/L (21-32) Anion Gap 8 (6-14) Blood Urea Nitrogen 10 mg/dL (7-20) Creatinine 0.8 mg/dL (0.6-1.0) Estimated GFR (Cockcroft-Gault) 79.0 BUN/Creatinine Ratio 13 (6-20) Glucose Level 99 mg/dL (70-99) Calcium Level 8.4 mg/dL (8.5-10.1) Total Bilirubin 0.3 mg/dL (0.2-1.0) Aspartate Amino Transf (AST/SGOT) 10 U/L (15-37) Alanine Aminotransferase (ALT/SGPT) 11 U/L (14-59) Alkaline Phosphatase 37 U/L (46-116) Total Protein 6.1 g/dL (6.4-8.2) Albumin 3.5 g/dL (3.4-5.0) Albumin/Globulin Ratio 1.3 (1.0-1.7) Cortisol AM Sample 4.9 ug/dL (4.3-22.4) Cortisol PM Sample 8.3 ug/dL (3.1-16.7) Laboratory Tests Test 05/17/21 19:45 05/18/21 02:14 05/18/21 03:45 05/18/21 14:00 Troponin I High Sensitivity 7 ng/L (4-50) Urine Collection Type Unknown Urine Color (Auto) Colorless Urine Turbidity Clear Urine pH (Auto) 7.0 (<5.0-8.0) Urine Specific [place] 1.006 (1.000-1.030) Urine Protein (Auto) Negative mg/dL (Negative) Urine Glucose (Auto)(UA) Negative mg/dL (Negative) Urine Ketones (Auto) Negative mg/dL (Negative) Urine Blood (Auto) Negative (Negative) Urine Nitrite Negative (Negative) Urine Bilirubin (Auto) Negative (Negative) Urine Urobilinogen (Auto) Normal mg/dL (Normal) Urine Leukocyte Esterase (Auto) Negative (Negative) Urine RBC 0 /HPF (0-2) Urine WBC 0 /HPF (0-4) Urine Squamous Epithelial Cells Few /LPF Urine Bacteria 0 /HPF (0-FEW) Urine Opiates Screen Neg (NEG) Urine Methadone Screen Neg (NEG) Urine Barbiturates Neg (NEG) Urine Phencyclidine Screen Neg (NEG) Urine Amphetamine/Methamphetamine Neg (NEG) Urine Benzodiazepines Screen Neg (NEG) Urine Cocaine Screen Neg (NEG) Urine Cannabinoids Screen Neg (NEG) Urine Ethyl Alcohol Neg (NEG) White Blood Count 5.2 x10^3/uL (4.0-11.0) Red Blood Count 3.83 x10^6/uL (3.50-5.40) Hemoglobin 11.8 g/dL (12.0-15.5) Hematocrit 34.6 % (36.0-47.0) Mean Corpuscular Volume 90 fL (79-100) Mean Corpuscular Hemoglobin 31 pg (25-35) Mean Corpuscular Hemoglobin Concent 34 g/dL (31-37) Red Cell Distribution Width 13.5 % (11.5-14.5) Platelet Count 230 x10^3/uL (140-400) Neutrophils (%) (Auto) 47 % (31-73) Lymphocytes (%) (Auto) 44 % (24-48) Monocytes (%) (Auto) 6 % (0-9) Eosinophils (%) (Auto) 3 % (0-3) Basophils (%) (Auto) 1 % (0-3) Neutrophils # (Auto) 2.4 x10^3/uL (1.8-7.7) Lymphocytes # (Auto) 2.3 x10^3/uL (1.0-4.8) Monocytes # (Auto) 0.3 x10^3/uL (0.0-1.1) Eosinophils # (Auto) 0.1 x10^3/uL (0.0-0.7) Basophils # (Auto) 0.0 x10^3/uL (0.0-0.2) Sodium Level 141 mmol/L (136-145) Potassium Level 3.7 mmol/L (3.5-5.1) Chloride Level 107 mmol/L (98-107) Carbon Dioxide Level 26 mmol/L (21-32) Anion Gap 8 (6-14) Blood Urea Nitrogen 10 mg/dL (7-20) Creatinine 0.8 mg/dL (0.6-1.0) Estimated GFR (Cockcroft-Gault) 79.0 BUN/Creatinine Ratio 13 (6-20) Glucose Level 99 mg/dL (70-99) Calcium Level 8.4 mg/dL (8.5-10.1) Total Bilirubin 0.3 mg/dL (0.2-1.0) Aspartate Amino Transf (AST/SGOT) 10 U/L (15-37) Alanine Aminotransferase (ALT/SGPT) 11 U/L (14-59) Alkaline Phosphatase 37 U/L (46-116) Total Protein 6.1 g/dL (6.4-8.2) Albumin 3.5 g/dL (3.4-5.0) Albumin/Globulin Ratio 1.3 (1.0-1.7) Cortisol AM Sample 4.9 ug/dL (4.3-22.4) Cortisol PM Sample 8.3 ug/dL (3.1-16.7) Brief Hospital Course Ms Dickinson is a 40-year-old female who presents to the ED with complaints of low blood pressure and symptomatic bradycardia. This is been a recurrent issue for her since February 2021. States she has been followed by dealer card room at [facility] for this issue and scheduled for an outpatient Holter monitor, but she has only seen his dealer card room once. Today she states she became dizzy while ambulating with some associated bilateral hearing loss, that she attributed to her seasonal allergies. When her became concerned about her vitals, he called her dealer card room and her dealer card room, he recommended coming to the ED for evaluation. Vitals: HR - 39, BP 98/59 3/30: When awake heart rate responds well to the 70s. Blood pressure is low but it is 98/77 currently. She has mildly positive orthostatic vital signs. 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 Symptoms are worse in the morning. A.m. cortisol was 4.5 TSH within normal limits. She did not initially disclose that back in February she had severe posterior headache and neck fullness and stiffness which has persisted and continues to have a posterior headache which is not similar to her normal tension headaches which are frontal. I have advised carotid and vertebral Dopplers and a noncontrast CT head and neck given the symptoms that were not initially disclosed because the patient and forgot about them. They do persist. Her CT head neck and carotid Dopplers are negative likely this is vasovagal syncope advised to continue hydration eating frequent small meals including snacks and empty her bladder frequently. She does note that previously she is had measured urine output with a urologist that was over 2 L. Problem list: Symptomatic bradycardia - telemetry reviewed, sinus scooter. TSH and Outpatient monitor has been arranged through [facility] dealer card room, Dr. Roach (she has not received). Hypotension Dizziness - upon awakening and standing Seasonal allergies Posterior headache Greater than 135 minutes spent on same day admit and d/c You had a CT scan of your head neck which showed no abnormalities. You had an ultrasound of your carotid arteries and vertebral arteries which did not show any occlusions or any sign of vertebrobasilar insufficiency. Ultimately you are being treated for orthostatic hypotension and concerns for parasympathetic nervous system overstimulation with potentially over full bladder and should follow-up with urology for consideration of urodynamic studies. In the meantime if you notice your blood pressure is low you have been given a prescription for midodrine to take as needed for low blood pressure especially when it is symptomatic and you are having blurriness dizziness or difficulty seeing hearing this can stimulate your blood pressure but is not designed to be a long-term medication without follow-up continue to take it for up to 3 months prior to having follow-up. You had normal thyroid function and normal a.m. and p.m. cortisol levels. Ask if an MRV is indicated at neurology follow up. Discharge Information Condition at Discharge: Improved Follow Up: Weeks (1) Disposition/Orders: D/C to Home Scheduled Midodrine Hcl (Midodrine Hcl) 5 Mg Tablet, 5 MG PO [id number] for hypotension for 60 Days, #180 Prescribed by: CEDRIC AYALA MD on 05/25/21 1144 Discontinued Medications Midodrine Hcl (Midodrine Hcl) 2.5 Mg Tablet, 2.5 MG PO [id number] for Hypotension (BP <90mmHg) for 30 Days, #90 Ref 1 Prescribed by: CEDRIC PETTY MD on 05/18/21 4702 Justicifation of Admission Dx: Justifications for Admission: Justification of Admission Dx: Yes CEDRIC PETTY MD May 18, 2021 17:55
--- NOTE | 2021-05-18 18:44 | NUR ---
Discharge Note: DORIE MACKEY6 [facility] Discharge instructions and discharge home medications reviewed with Patient and a copy given. All questions have been answered and understanding verbalized. The following instructions and handouts were given: hypotension, midodrine Patient discharged to home with spouse via wheelchair.
[2021-05-25] MEDS ORDERED: MIDO5TAB4 PO (11:44)
== END 2021-05-18 18:44 | disposition home or self-care (01) ==
LOC: ER 13:05 → 6 SOUTH 15:55
PROVIDERS: ADMIT Family Medicine; ATTEND Family Medicine
DX: R00.1 Bradycardia, unspecified (principal); I95.9 Hypotension, unspecified; J30.2 Other seasonal allergic rhinitis; R42 Dizziness and giddiness; R06.02 Shortness of breath; Z87.442 Personal history of urinary calculi; Z90.710 Acquired absence of both cervix and uterus; Z79.899 Other long term (current) drug therapy
CPT/HCPCS: 36415; 70450; 71045; 72125; 80053; 80307; 81001; 82533; 83735; 83880; 84443; 84484; 85025; 93005; 93880; 96360; 99285; G0378; J7030; G0379